=== PATIENT | female | born 1965 | race Hispanic/Latino ===

== ENCOUNTER 2017-02-20 09:05 | Emergency (ER) | payer SELFPAY ==
[2017-02-20 10:09] LABS: Basophils % (Auto) 1.4 % (0.0-1.8); Eosinophils % (Auto) 0.7 % (0.0-4.3); Hematocrit 40.5 % (30.3-42.9); Hemoglobin 13.5 gm/dl (10.1-14.3); Mean Corpuscular HGB Conc 33 % (30-34); Mean Corpuscular Hemoglobin 30 pg (28-32); Mean Corpuscular Volume 89 fl (79-97); Platelet Count 315 K/mm3 (140-440); Red Blood Count 4.53 M/mm3 (3.65-5.03); Red Cell Distribution Width 14.7 % (13.2-15.2); White Blood Count 4.3 K/mm3 (4.5-11.0)
[2017-02-20 10:23] LABS: Anion Gap 20 mmol/L; BUN/Creatinine Ratio 16; Blood Urea Nitrogen 8 mg/dL (7-17); Calcium 8.9 mg/dL (8.4-10.2); Carbon Dioxide 25 mmol/L (22-30); Chloride 99.2 mmol/L (98-107); Glucose 100 mg/dL (65-100); Sodium 140 mmol/L (137-145)
[2017-02-20 14:22] LABS: Mucus,Urine FEW /HPF
[2017-02-20 14:33] LABS: Urine Drugs of Abuse Note Disclamer
[2017-02-20 14:35] LABS: Bilirubin,Urine Negative (Negative); Ketones,Urine Negative (Negative)
[2017-02-20 14:36] LABS: Blood,Urine Negative (Negative); Leukocyte Esterase,Urine Negative (Negative); Nitrite,Urine Negative (Negative); Protein,Urine <15 mg/dL mg/dL (Negative); Urobilinogen,Urine < 2.0 mg/dL (<2.0)
--- NOTE | 2017-02-20 15:24 | Emergency Department Report ---
ED Psych HPI - General Chief Complaint: Psych Stated Complaint: SUICIDAL IDEATIONS Time Seen by Provider: 02/20/17 12:24 Source: patient Mode of arrival: Ambulatory - History of Present Illness Initial Comments: 51 YO FEMALE WITH H/O CHRONIC ALCOHOL ABUSE WHO IS HOMELESS AND SUICIDAL. SHE PANS TO HAND HERSELF FROM A [place]. [place] WITH PLANS OF HANGING HERSELF BUT WAS BROUGHT IN BY EMS. SHE AHS BEEN DRINKING FOR MORE THAN 30 YRS SINCE SHE WAS 12 YEARS OLD AND HAD BEEN DRUNK ALMOST EVERY DAY. -: Gradual Associated Psychiatric Symptoms: depression, suicidal ideation History of same: Yes Quality: getting worse Improves With: none Worsens With: none Context: recent alcohol abuse, significant life stressor Associated Symptoms: denies other symptoms - Related Data Allergies Allergy/AdvReac Type Severity Reaction Status Date / Time shellfish derived Allergy Shortness Verified 02/20/17 09:28 of Breath ED Review of Systems ROS: Stated complaint: SUICIDAL IDEATIONS Other details as noted in HPI Constitutional: denies: chills, fever Eyes: denies: eye pain, eye discharge, vision change ENT: denies: ear pain, throat pain Respiratory: denies: cough, shortness of breath, wheezing Cardiovascular: denies: chest pain, palpitations Endocrine: no symptoms reported Gastrointestinal: denies: abdominal pain, nausea, diarrhea Genitourinary: denies: urgency, dysuria, discharge Musculoskeletal: denies: back pain, joint swelling, arthralgia Skin: denies: rash, lesions Neurological: denies: headache, weakness, paresthesias Psychiatric: depression. denies: anxiety Hematological/Lymphatic: denies: easy bleeding, easy bruising ED Past Medical Hx - Past Medical History Previous Medical History?: Yes Hx Psychiatric Treatment: Yes (Anxiety, Depression) Additional medical history: ALCOHOLISM - Surgical History Past Surgical History?: No - Social History Smoking Status: Current Every Day Smoker Substance Use Type: Alcohol ED Physical Exam - General Limitations: No Limitations General appearance: alert, in no apparent distress - Head Head exam: Present: atraumatic, normocephalic - Eye Eye exam: Present: normal appearance, EOMI - ENT ENT exam: Present: mucous membranes moist, other (MULTIPLE MISSING TEETH) - Neck Neck exam: Present: normal inspection, full ROM - Respiratory Respiratory exam: Present: normal lung sounds bilaterally. Absent: respiratory distress - Cardiovascular Cardiovascular Exam: Present: regular rate, normal rhythm. Absent: systolic murmur, diastolic murmur, rubs, gallop - GI/Abdominal GI/Abdominal exam: Present: soft, normal bowel sounds - Rectal Rectal exam: Present: deferred - Extremities Exam Extremities exam: Present: normal inspection, full ROM - Back Exam Back exam: Present: normal inspection, full ROM - Neurological Exam Neurological exam: Present: alert, oriented X3, CN II-XII intact - Psychiatric Psychiatric exam: Present: depressed, flat affect, suicidal ideation - Skin Skin exam: Present: warm, dry, intact, normal color. Absent: rash ED Course Vital Signs 02/20/17 09:21 Temperature 98.2 F Pulse Rate 96 H Blood Pressure 132/72 O2 Sat by Pulse 99 Oximetry ED Medical Decision Making - Lab Data Result diagrams: 02/20/17 09:48 02/20/17 09:48 Critical care attestation.: If time is entered above; I have spent that time in minutes in the direct care of this critically ill patient, excluding procedure time. ED Disposition Clinical Impression: Suicidal ideation, Alcohol abuse, Medical clearance for psychiatric admission Depression Qualifiers: Depression Type: unspecified Qualified Code(s): F32.9 - Major depressive disorder, single episode, unspecified Disposition: [id number]/[id number] PSY HOSP/PSY UNIT Is pt being admited?: Yes Does the pt Need Aspirin: No Condition: Stable Referrals: PRIMARY CARE, [Primary Care Provider] - 3-5 Days Time of Disposition: 15:31
[2017-02-20] MEDS ORDERED: ATIVAN PO ONE (16:39)
[2017-02-20] MEDS ORDERED: DESYREL PO ONE (22:42)
[2017-02-21] MEDS ORDERED: ATIVAN IV PRN ×2 (11:47)
--- NOTE | 2017-02-21 11:54 | Consultation ---
History of Present Illness - Reason for Consult Consult date: 02/21/17 Reason for consult: Mental Health Evaluation Requesting physician: SURJIT MASON - Chief Complaint Chief complaint: "I am suicidal" - History of Present Psychiatric Illness 51 y.o. white female presenting to [facility] for SI's (hang herself). Today the patient is agitated and irritable, but cooperative during the assessment. She stated that she have no reason to live. She stated being homeless currently and didn't want to talk about other things going on in her life. She stating drinking alcohol (etoh) since she was 12 yrs old. She stated that her last drink was 2 days ago. She stated being discharged from [facility] a couple weeks ago for SI's. She stated that she had not slept in 4 days prior to her admission to the hospital. She stated experiencing sleep issues in past followed by SI's. She stated that she have attempted suicide "4 times." She stated, "I just need to ." She denies HI's and AVH's. She denies recreational drug use and a poor appetite. Medications and Allergies Allergies Allergy/AdvReac Type Severity Reaction Status Date / Time shellfish derived Allergy Shortness Verified 02/20/17 09:28 of Breath Home Medications Medication Instructions Recorded Confirmed Last Taken Type FLUoxetine HCL [PROzac] 40 mg PO QDAY 02/20/17 02/20/17 Unknown History buPROPion [Wellbutrin] 150 mg PO DAILY 02/20/17 02/20/17 Unknown History carBAMazepine [TEGretol] 200 mg PO TID 02/20/17 02/20/17 Unknown History traZODone [Desyrel] 50 mg PO QHS 02/20/17 02/20/17 Unknown History Active Meds: Active Medications Lorazepam (Ativan) 2 mg IV Q1HR PRN PRN Reason: CIWA-Ar 8-15 Lorazepam (Ativan) 4 mg IV Q1HR PRN PRN Reason: CIWA-Ar 16-25 Trazodone HCl (Desyrel) 50 mg PO HS JERRY Stop: 02/26/17 21:59 Last Admin: 02/20/17 23:41 Dose: 50 mg Past psychiatric history - Past Medical History Past Medical History: No medical history Past Surgical History: No surgical history - past Psychiatric treatment and history Psych: Depression psychiatric treatment history: Multiple in patient setting at [facility]. Denies a fam psy hx. - Social History Social history: other (Homeless) Mental Status Exam - Vital signs Last Vital Signs Temp 98.7 F 02/20/17 19:27 Pulse 71 02/20/17 19:27 Resp 18 02/20/17 19:27 BP 115/69 02/20/17 19:27 Pulse Ox 97 02/20/17 19:27 - Exam Narrative exam: MSE: Appearance: irritable, cooperative Behavior: regular eye contact Speech: regular rate and tone Mood: "depressed" Affect: congruent to mood Thought Process: circumstantial Thought Content: denies HI's and AVH's Motor Activity: sitting up in bed Cognition: A/O x3 Insight: variable Judgment: variable Results Result Diagrams: 02/20/17 09:48 02/20/17 09:48 All other labs normal. Assessment and Plan Assessment and plan: Impression: Bipolar DO. Alcohol Use DO. Today the patient is agitated and irritable, but cooperative during the assessment. Mild tremors noted (etoh). DDx: R/O MDD Recommendation/Plan: Continue 1013 with placement to [facility] today. Start Benadryl 25 mg PO HS PRN for sleep consolidation and Tegretol 200 mg PO BID for mood. Discussed generalized coping skills with patient. Monitor the patient for alcohol withdrawals.
[2017-02-21] MEDS ORDERED: BENADRYL PO PRN (12:15)
[2017-02-21 20:25] VITALS: BP 109/70
[2017-02-21] MEDS ORDERED: DESYREL PO SCH (22:00)
== END 2017-02-21 20:15 ==
LOC: ED 09:05 → EEVIPCON 09:05 → ED 02-21 20:15
DX: F32.9 Major depressive disorder, single episode, unspecified (principal); F10.10 Alcohol abuse, uncomplicated; F41.9 Anxiety disorder, unspecified; F17.200 Nicotine dependence, unspecified, uncomplicated; Z91.013 Allergy to seafood
CPT/HCPCS: 36415; 80048; 80156; 80307; 81001; 85025; 99285; G0480; 80320